=== PATIENT | female | born 1985 | race Two or more races ===

== ENCOUNTER 2020-01-11 09:10 | Inpatient (IN) | payer OTHER ==
[2020-01-11] MEDS ORDERED: BETAMET ACET/BETAMET NA PH 30 MG/5 ML VIAL IM ONE (10:47)
[2020-01-11] MEDS ORDERED: ACETAMINOPHEN 500 MG TABLET (FP) PO PRN (10:51)
[2020-01-11] MEDS ORDERED: DOCUSATE SODIUM 100 MG CAPSULE (FP) PO PRN (10:51)
--- NOTE | 2020-01-11 10:57 | HP ---
Past Medical History - Primary Care Physician PCP:: Chad Russ - Admission Chief Complaint: 36 weeks, oligo, GDM, breech , variable decel. AMA History of Present Illness: 36 weeks gestation with GDM, diet controlled , breech presentation and decreased AF, and variable decelration admitted for prolonged FHM and follow up harry History Source: Patient Limitations to Obtaining History: Language Barrier - Past Medical History ...: 1 ...Para: 0 ...EDC by Sono: 02/12/20 - Past Surgical History Hx Myomectomy: No Hx Transabdominal Cerclage: No - Social History History of Recent Travel: No Home Medications - Allergies Allergies/Adverse Reactions: Allergies Allergy/AdvReac Type Severity Reaction Status Date / Time No Known Allergies Allergy Verified 01/11/20 09:32 - Home Medications Home Medications: Ambulatory Orders Pnv No.95/Ferrous Fum/Folic AC [ Vitamin Tablet] 1 each PO DAILY 01/09/20 Review of Systems - Review of Systems Constitutional: reports: No Symptoms Eyes: reports: No Symptoms HENT: reports: No Symptoms Neck: reports: No Symptoms Cardiovascular: reports: No Symptoms Respiratory: reports: No Symptoms Gastrointestinal: reports: No Symptoms Genitourinary: reports: No Symptoms Breasts: reports: No Symptoms Reported Musculoskeletal: reports: No Symptoms Integumentary: reports: No Symptoms Neurological: reports: No Symptoms Endocrine: reports: No Symptoms Hematology/Lymphatic: reports: No Symptoms Psychiatric: reports: No Symptoms Physical Exam - Maternity Vital Signs: Vital Signs Temperature 98.3 F 01/11/20 09:34 Pulse Rate 72 01/11/20 09:34 Respiratory Rate 20 01/11/20 09:34 Blood Pressure 102/69 01/11/20 09:34 O2 Sat by Pulse Oximetry (%) Constitutional: Yes: Well Nourished Eyes: Yes: WNL HENT: Yes: WNL Neck: Yes: WNL Cardiovascular: Yes: WNL Breast(s): Yes: WNL - Abdominal Exam/OB Fundal Height: 36 Number of Fetuses: Single Presentation: Breech Contractions: No Regularity: Irritability Intensity: Unaware Monitor Mode: External Heart Rate Location: Midline Category: I Accelerations: Non-Uniform Decelerations: Variable - Vaginal Exam/OB Vaginal Bleeding: No Speculum Exam: No Dilatation (cm): closed Effacement (%): 0 Amniotic Membrane Status: Intact Presentation: Girish Breech Station: -3 - Physical Exam Musculoskeletal: Yes: WNL Extremities: Yes: WNL Edema: Yes Edema: LLE: Trace, RLE: Trace Deep Tendon Reflex Grade: Normal +2 Psychiatric: Yes: WNL Hemorrhage Risk Assessment - Risk Factors Medium Risk Factors: Yes: None High Risk Factors: Yes: None Risk Score: 1 Risk Level: Medium Risk Problem List - Problems (1) with 36 completed weeks gestation Code(s): Z3A.36 - 36 WEEKS GESTATION OF (2) GDM (gestational diabetes mellitus) Code(s): O24.419 - GESTATIONAL DIABETES MELLITUS IN , UNSP CONTROL Qualifiers: Gestational diabetes mellitus control: diet-controlled Trimester: third trimester Qualified Code(s): O24.410 - Gestational diabetes mellitus in , diet controlled (3) Oligohydramnios Code(s): O41.00X0 - OLIGOHYDRAMNIOS, UNSP TRIMESTER, NOT APPLICABLE OR UNSP Qualifiers: Fetus number: single or unspecified fetus Trimester: third trimester Qualified Code(s): O41.03X0 - Oligohydramnios, third trimester, not applicable or unspecified (4) Breech presentation of fetus Code(s): O32.1XX0 - MATERNAL CARE FOR BREECH PRESENTATION, UNSP Qualifiers: Fetus number: single or unspecified fetus Qualified Code(s): O32.1XX0 - Maternal care for breech presentation, not applicable or unspecified Assessment/Plan admit prolonged FHM Blood sugar monitoring repeat BPP in am for HARRY celestone for long maturity
[2020-01-11 11:24] LABS: BASO % 0.5 % (0-2.0); EOS % 1.2 % (0-4.5); HEMATOCRIT 29.8 % (32.4-45.2); LYMPH % 20.5 % (8-40); MCH 30.9 pg (25.7-33.7); MCHC 33.7 g/dl (32.0-36.0); MEAN CELL VOLUME 91.9 fl (80-96); MONO % 6.4 % (3.8-10.2); NEUT % 71.4 % (42.8-82.8); PLATELET COUNT 235 K/MM3 (134-434); RBC 3.25 M/mm3 (3.60-5.2); RDW 14.5 % (11.6-15.6); WHITE BLOOD COUNT 8.5 K/mm3 (4.0-10.0)
[2020-01-11 11:29] LABS: INR 0.92 (0.83-1.09); PROTHROMBIN TIME (PATIENT) 10.9 SEC (9.7-13.0)
[2020-01-11 11:32] LABS: ACTIVATED PTT 26.7 SECONDS (25.2-36.5)
[2020-01-11 11:48] LABS: BLOOD UREA NITROGEN 7.2 mg/dL (7-18); CALCIUM 8.8 mg/dL (8.5-10.1); CREATININE 0.4 mg/dL (0.55-1.3); POTASSIUM 4.5 mmol/L (3.5-5.1)
[2020-01-11 11:58] VITALS: BMI 23.8
[2020-01-11] MEDS ORDERED: BETAMET ACET/BETAMET NA PH 30 MG/5 ML VIAL ONE (12:07)
[2020-01-11] MEDS: PRENATAL VITAMINS W/ FOLIC ACID TABLET (FP) PO SCH (12:32)
[2020-01-11 16:10] LABS: BLOOD UREA NITROGEN 7.9 mg/dL (7-18); CREATININE 0.6 mg/dL (0.55-1.3); POTASSIUM 3.7 mmol/L (3.5-5.1)
[2020-01-11] MEDS: INSULIN SLIDING SCALE (NOVOLOG) 1 VIAL SQ SCH (20:50)
[2020-01-11] MEDS ORDERED: INSULIN (LEVEMIR) 100 UNITS/ML UNITS SQ SCH (22:00)
--- NOTE | 2020-01-11 22:02 | PN ---
Progress Note (short form) - Note Progress Note: BGM 191 , will start on NPH 5 u HS, and sliding scale regular insulin Problem List - Problems (1) with 36 completed weeks gestation Code(s): Z3A.36 - 36 WEEKS GESTATION OF (2) GDM (gestational diabetes mellitus) Code(s): O24.419 - GESTATIONAL DIABETES MELLITUS IN , UNSP CONTROL Qualifiers: Gestational diabetes mellitus control: diet-controlled Trimester: third trimester Qualified Code(s): O24.410 - Gestational diabetes mellitus in , diet controlled (3) Oligohydramnios Code(s): O41.00X0 - OLIGOHYDRAMNIOS, UNSP TRIMESTER, NOT APPLICABLE OR UNSP Qualifiers: Fetus number: single or unspecified fetus Trimester: third trimester Qualified Code(s): O41.03X0 - Oligohydramnios, third trimester, not applicable or unspecified (4) Breech presentation of fetus Code(s): O32.1XX0 - MATERNAL CARE FOR BREECH PRESENTATION, UNSP Qualifiers: Fetus number: single or unspecified fetus Qualified Code(s): O32.1XX0 - Maternal care for breech presentation, not applicable or unspecified
[2020-01-12] MEDS ORDERED: ELECTROLYTE-148 SOLN 1,000 ML IV ONE (01:30)
[2020-01-12] MEDS ORDERED: BETAMET ACET/BETAMET NA PH 30 MG/5 ML VIAL IM ONE (08:45)
[2020-01-12] MEDS: INSULIN SLIDING SCALE (NOVOLOG) 1 VIAL SQ SCH ×2 (10:50→10:51)
[2020-01-12] MEDS: PRENATAL VITAMINS W/ FOLIC ACID TABLET (FP) PO SCH (10:52)
[2020-01-12] MEDS ORDERED: ELECTROLYTE-148 SOLN 500 ML IV ONE (11:29)
[2020-01-12] MEDS ORDERED: CITRIC ACID/SODIUM CITRATE 30 ML UNIT-DOSE CUP PO ONE (11:29)
[2020-01-12] MEDS ORDERED: ELECTROLYTE-148 SOLN 1,000 ML IV SCH (11:30)
[2020-01-12] MEDS ORDERED: OXYTOCIN 20 UNITS in 0.9% NS 20 UNIT/1,000 ML INFUS.BAG IV ONE (11:46)
--- NOTE | 2020-01-12 12:34 | PN ---
Progress Note (short form) - Note Progress Note: Pt back from Sonogram around 10AM BPP 09/07, off for fluid. HARRY 2.6 now; down from 7.1 on 01/08 and 6.4 on 01/10 Delivery recommended by MFM given change in fluid. FHT Cat I upon return from L&D Discussed findings with patient and her in [place] Delivery recommended, via given Breech presentation Consents signed after risks reviewed in [place]. All questions answered. Theresa Mars MD
[2020-01-12] MEDS ORDERED: morphine SULFATE/PF 0.5 MG/ML (2cc Syringe - QUVA) ONE (13:27)
[2020-01-12] MEDS ORDERED: oxyCODONE HCL 5 MG TABLET PO PRN (14:21)
[2020-01-12] MEDS ORDERED: IBUPROFEN 800 MG/8 ML IJ IVPB PRN (14:21)
[2020-01-12] MEDS ORDERED: METHYLERGONOVINE MALEATE 0.2 MG/1 ML AMP IM PRN (14:21)
--- NOTE | 2020-01-12 14:21 | OP ---
Operative Note - Note: Operative Date: 01/12/20 Pre-Operative Diagnosis: 35 week , GDMA2- non compliant, Oligohydramnios, Breech Operation: Primary Low Transverse Findings: VFI, Complete Breech, no nuchal, no fluid, Apgrs 12/09. Normal tubes and ovaries bilaterally Post-Operative Diagnosis: Same as Pre-op Surgeon: Diana Mars Mining Engineer: Vamshi Canales Anesthesia: Spinal Estimated Blood Loss (mls): 500 Drains, Volume Out (mls): 100 (clear urine) Operative Report Dictated: Yes
[2020-01-12] MEDS ORDERED: OXYTOCIN 20 UNITS in 0.9% NS 20 UNIT/1,000 ML INFUS.BAG IV SCH (14:30)
[2020-01-12] MEDS ORDERED: ONDANSETRON 4 MG/2 ML VIAL ONE (15:06)
[2020-01-12] MEDS ORDERED: ONDANSETRON 4 MG/2 ML VIAL IVPUSH PRN (15:17)
[2020-01-12] MEDS ORDERED: morphine SULFATE/PF 0.5 MG/ML (2cc Syringe - QUVA) SPIN ONE (15:17)
[2020-01-12] MEDS ORDERED: DEXAMETHASONE SOD PHOSPHATE 20 MG/5 ML VIAL IVPB ONE (15:18)
--- NOTE | 2020-01-12 15:18 | OP ---
DATE OF OPERATION: 01/12/2020 PREOPERATIVE DIAGNOSIS: A 35-week , gestational diabetes A2 noncompliant, oligohydramnios, breech presentation. POSTOPERATIVE DIAGNOSIS: A 35-week , gestational diabetes A2 noncompliant, oligohydramnios, breech presentation. PROCEDURE: Primary low transverse section. ANESTHESIA: Spinal. SURGEON: Diana Mars MD BOBBIN CLEANER HAND: RAMYA Mills ESTIMATED BLOOD LOSS: 500 IV FLUIDS: Per Anesthesia record. URINE OUTPUT: 100 mL of clear urine at the end of the procedure. FINDINGS: A viable female complete breech, no nuchal, no fluid, 's 9, 9. Normal tubes and ovaries bilaterally. COMPLICATIONS: None. CONDITION: Stable to recovery room. NATURE OF THE PROCEDURE: After the appropriate consents were signed, patient was taken to the operating room. Spinal anesthesia was administered. She was placed in the supine position. The abdomen was prepped and draped in a normal sterile fashion. A sterile Babb catheter was inserted in the operating room. A timeout was performed confirming correct patient and procedure. Anesthesia was confirmed. A Pfannenstiel incision was made, carried through to the underlying layers until the fascia was nicked in the midline. The fascia was then extended laterally with the Bustillo scissors. The inferior aspect of the fascia was grasped with a David clamp, tented upwards and the rectus muscles dissected off bluntly and with the Bustillo scissors. Attention was then paid to the superior aspect which was taken down in a similar fashion. The rectus muscles were in the midline. The peritoneum was entered sharply. Bladder blade was inserted. The bladder flap was created with the Metzenbaum scissors and digitally. The bladder blade was readjusted. The uterus was incised in a low transverse fashion. Clear amniotic fluid was not appreciated. No fluid was appreciated. The was noted to be in complete breech presentation. The feet were grasped, pulled through the hysterotomy. Then remaining body, shoulders, 's head were delivered in a typical breech fashion. Cord was clamped and cut. The infant handed off to the waiting NICU staff. Placenta was then removed manually. Uterus was cleared of all clot and debris. The uterus was exteriorized. The hysterotomy was closed in 2 layers with a 0 Vicryl. The muscles were then closed after the uterus was reintroduced into the abdominal cavity and the gutters were cleared. The muscles were reapproximated with a 2-0 chromic. The fascia was closed with a 0 Vicryl. The skin was closed with a 3-0 Biosyn. Bandages were placed. Sponge, lap, needle counts were correct x3. The patient did receive Ancef at the start of the procedure. She was taken from the operating room to the recovery area in stable condition. MD NELLA GOMEZ/[id number]
[2020-01-12 15:29] LABS: CORD BASE EXCESS -3.2 mmol/L (0-2); CORD HCO3 22.3 mmHg (20-29); CORD PCO2 41.6 mmHg (30-78); CORD pH 7.347 (7.14-7.44)
[2020-01-12 15:33] LABS: CORD PCO2 58.1 mmHg (30-78); CORD pH 7.251 (7.14-7.44)
[2020-01-12] MEDS ORDERED: ACETAMINOPHEN INJECTION 100 ML IVPB ONE (15:55)
[2020-01-12] MEDS ORDERED: ACETAMINOPHEN 1000 MG/100 ML VIAL (NON FORMULARY) IVPB PRN (16:30)
[2020-01-12] MEDS: FERROUS SO4 325 MG TABLET (FP) PO SCH (23:30)
--- NOTE | 2020-01-13 07:29 | PN ---
Post Progress Note - Subjective Subjective: Babb removed, not yet ambulating, no N/V, lochia decreased, baby in center Post Day: 1 Type of Delivery: Primary C/S Vital Signs: Vital Signs Temperature 98.3 F 01/13/20 06:00 Pulse Rate 67 01/13/20 06:00 Respiratory Rate 20 01/13/20 06:00 Blood Pressure 90/44 L 01/13/20 06:00 O2 Sat by Pulse Oximetry (%) 93 L 01/13/20 06:00 Breast Exam: Yes: Other Uterus: Yes: Fundus Firm Incision: Yes: Dressing dry and intact Abdomen/GI: Yes: Abdomen soft Lochia, amount: Moderate Extremities: Yes: Calves non-tender Perineum: Yes: Intact Activity: Ambulating - Labs Labs: CBC WBC 8.5 K/mm3 (4.0-10.0) 01/11/20 11:10 RBC 3.25 M/mm3 (3.60-5.2) L 01/11/20 11:10 Hgb 10.0 GM/dL (10.7-15.3) L 01/11/20 11:10 Hct 29.8 % (32.4-45.2) L 01/11/20 11:10 MCV 91.9 fl (80-96) 01/11/20 11:10 MCH 30.9 pg (25.7-33.7) 01/11/20 11:10 MCHC 33.7 g/dl (32.0-36.0) 01/11/20 11:10 RDW 14.5 % (11.6-15.6) 01/11/20 11:10 Plt Count 235 K/MM3 (134-434) 01/11/20 11:10 MPV 10.0 fl (7.5-11.1) 01/11/20 11:10 Absolute Neuts (auto) 6.1 K/mm3 (1.5-8.0) 01/11/20 11:10 Neutrophils % 71.4 % (42.8-82.8) 01/11/20 11:10 Lymphocytes % 20.5 % (8-40) 01/11/20 11:10 Monocytes % 6.4 % (3.8-10.2) 01/11/20 11:10 Eosinophils % 1.2 % (0-4.5) 01/11/20 11:10 Basophils % 0.5 % (0-2.0) 01/11/20 11:10 Nucleated RBC % 0 % (0-0) 01/11/20 11:10 Assessment/Plan 35 y/o on POD # 1 in stable condition and infant in center -AM CBC -COntinue inpatient care -Encourage ambulation
[2020-01-13 08:15] LABS: BASO % 0.1 % (0-2.0); HEMATOCRIT 24.3 % (32.4-45.2); HEMOGLOBIN 8.3 GM/dL (10.7-15.3); LYMPH % 13.7 % (8-40); MCH 31.2 pg (25.7-33.7); MCHC 34.1 g/dl (32.0-36.0); MEAN CELL VOLUME 91.5 fl (80-96); MEAN PLT VOLUME 10.1 fl (7.5-11.1); MONO % 6.7 % (3.8-10.2); NEUT % 79.5 % (42.8-82.8); PLATELET COUNT 200 K/MM3 (134-434); RBC 2.66 M/mm3 (3.60-5.2); RDW 14.6 % (11.6-15.6); WHITE BLOOD COUNT 14.6 K/mm3 (4.0-10.0)
--- NOTE | 2020-01-13 08:22 | PN ---
Progress Note (short form) - Note Progress Note: Post Anesthesia post op check Patient seen at bedside, s/p c section under spinal anesthesia with duramorph for post op pain control. Pt doing well, pain controlled, no nausea or vomiting, itching controlled, no headache, no anesthetic complications, dept of anesthesi ology will sign off care at this time
[2020-01-13] MEDS: FERROUS SO4 325 MG TABLET (FP) PO SCH ×2 (10:20→21:14)
[2020-01-13] MEDS: PRENATAL VITAMINS W/ FOLIC ACID TABLET (FP) PO SCH (10:20)
[2020-01-13] MEDS ORDERED: BISACODYL 10 MG SUPP.RECT RC PRN (14:21)
[2020-01-13] MEDS: IBUPROFEN 600 MG TABLET (FP) PO PRN (20:48)
[2020-01-13] MEDS: SIMETHICONE 80 MG TAB.CHEW (FP) PO PRN (20:48)
--- NOTE | 2020-01-14 07:45 | PN ---
Post Progress Note - Subjective Subjective: c/o pain 7-8/10 voiding without difficulty no c/o dizziness Post Day: 2 Type of Delivery: Primary C/S Vital Signs: Vital Signs Temperature 98.6 F 01/13/20 22:00 Pulse Rate 65 01/13/20 22:00 Respiratory Rate 18 01/13/20 22:00 Blood Pressure 94/52 L 01/13/20 22:00 O2 Sat by Pulse Oximetry (%) 93 L 01/13/20 06:00 Breast Exam: Yes: Soft, Engorged (plans to BF ) Uterus: Yes: Fundus Firm, Fundus below umbilicus (tender) Incision: Yes: Sutures intact. No: Redness, Oozing Abdomen/GI: Yes: Abdomen soft, Tender, Passing flatus (bm not done ), Tolerating PO (diet). No: Abdominal Distention Lochia: Yes: Rubra Lochia, amount: Moderate Extremities: Yes: Calves non-tender Perineum: Yes: Intact Activity: Ambulating - Labs Labs: CBC WBC 14.6 K/mm3 (4.0-10.0) H 01/13/20 07:53 RBC 2.66 M/mm3 (3.60-5.2) L 01/13/20 07:53 Hgb 8.3 GM/dL (10.7-15.3) L 01/13/20 07:53 Hct 24.3 % (32.4-45.2) L D 01/13/20 07:53 MCV 91.5 fl (80-96) 01/13/20 07:53 MCH 31.2 pg (25.7-33.7) 01/13/20 07:53 MCHC 34.1 g/dl (32.0-36.0) 01/13/20 07:53 RDW 14.6 % (11.6-15.6) 01/13/20 07:53 Plt Count 200 K/MM3 (134-434) 01/13/20 07:53 MPV 10.1 fl (7.5-11.1) 01/13/20 07:53 Absolute Neuts (auto) 11.6 K/mm3 (1.5-8.0) H 01/13/20 07:53 Neutrophils % 79.5 % (42.8-82.8) 01/13/20 07:53 Lymphocytes % 13.7 % (8-40) D 01/13/20 07:53 Monocytes % 6.7 % (3.8-10.2) 01/13/20 07:53 Eosinophils % 0.0 % (0-4.5) D 01/13/20 07:53 Basophils % 0.1 % (0-2.0) 01/13/20 07:53 Nucleated RBC % 0 % (0-0) 01/13/20 07:53 Problem List - Problems (1) Status post section routine follow-up Code(s): Z39.2 - ENCOUNTER FOR ROUTINE FOLLOW-UP; Z98.891 - HISTORY OF UTERINE SCAR FROM PREVIOUS SURGERY Assessment/Plan s/p primary c/section day#2 stable anemia not symptomatic encourage to breast feed amulatation, po fluids, deep breathing encouraged may discharge tomorrow.
[2020-01-14] MEDS: PRENATAL VITAMINS W/ FOLIC ACID TABLET (FP) PO SCH (09:38)
[2020-01-14] MEDS: FERROUS SO4 325 MG TABLET (FP) PO SCH ×2 (09:38→22:22)
[2020-01-14] MEDS: IBUPROFEN 600 MG TABLET (FP) PO PRN (17:22)
[2020-01-14] MEDS: SIMETHICONE 80 MG TAB.CHEW (FP) PO PRN (20:09)
[2020-01-14] MEDS ORDERED: ACETAMINOPHEN 500 MG TABLET (FP) PO PRN (23:10)
[2020-01-15] MEDS: IBUPROFEN 600 MG TABLET (FP) PO PRN ×2 (05:23→13:50)
[2020-01-15] MEDS: SIMETHICONE 80 MG TAB.CHEW (FP) PO PRN (05:24)
--- NOTE | 2020-01-15 07:46 | PN ---
Post Progress Note - Subjective Subjective: Pain controlled. Breastpumping. Pain controlled. No fevers/chills. Post Day: 3 Type of Delivery: Primary C/S Vital Signs: Vital Signs Temperature 98.1 F 01/14/20 22:00 Pulse Rate 69 01/14/20 22:00 Respiratory Rate 20 01/14/20 22:00 Blood Pressure 96/57 L 01/14/20 22:00 O2 Sat by Pulse Oximetry (%) 98 01/14/20 09:15 Incision: No: Dressing dry and intact, [place] intact, Sutures intact, Redness, Oozing, Other Abdomen/GI: No: Abdomen soft, Abdominal Distention, Tender, Passing flatus, Tolerating PO, Other Extremities: No: Calves non-tender, Calf tenderness, Edema Perineum: No: Intact, Episiotomy, Laceration Activity: Ambulating - Labs Labs: CBC WBC 14.6 K/mm3 (4.0-10.0) H 01/13/20 07:53 RBC 2.66 M/mm3 (3.60-5.2) L 01/13/20 07:53 Hgb 8.3 GM/dL (10.7-15.3) L 01/13/20 07:53 Hct 24.3 % (32.4-45.2) L D 01/13/20 07:53 MCV 91.5 fl (80-96) 01/13/20 07:53 MCH 31.2 pg (25.7-33.7) 01/13/20 07:53 MCHC 34.1 g/dl (32.0-36.0) 01/13/20 07:53 RDW 14.6 % (11.6-15.6) 01/13/20 07:53 Plt Count 200 K/MM3 (134-434) 01/13/20 07:53 MPV 10.1 fl (7.5-11.1) 01/13/20 07:53 Absolute Neuts (auto) 11.6 K/mm3 (1.5-8.0) H 01/13/20 07:53 Neutrophils % 79.5 % (42.8-82.8) 01/13/20 07:53 Lymphocytes % 13.7 % (8-40) D 01/13/20 07:53 Monocytes % 6.7 % (3.8-10.2) 01/13/20 07:53 Eosinophils % 0.0 % (0-4.5) D 01/13/20 07:53 Basophils % 0.1 % (0-2.0) 01/13/20 07:53 Nucleated RBC % 0 % (0-0) 01/13/20 07:53 Assessment/Plan 35yo s/p PLTCS, POD#3 Routine PP care PO pain control OOB, ambulate Labs reviewed D/C to home POD#4 given baby in NICU Theresa Mars MD
[2020-01-15 08:45] LABS: BASO % 0.6 % (0-2.0); EOS % 0.9 % (0-4.5); HEMATOCRIT 30.5 % (32.4-45.2); HEMOGLOBIN 10.1 GM/dL (10.7-15.3); LYMPH % 26.9 % (8-40); MCH 30.3 pg (25.7-33.7); MEAN CELL VOLUME 91.8 fl (80-96); MEAN PLT VOLUME 9.6 fl (7.5-11.1); MONO % 6.8 % (3.8-10.2); NEUT % 64.8 % (42.8-82.8); PLATELET COUNT 281 K/MM3 (134-434); RBC 3.32 M/mm3 (3.60-5.2); RDW 14.9 % (11.6-15.6); WHITE BLOOD COUNT 13.4 K/mm3 (4.0-10.0)
[2020-01-15] MEDS: PRENATAL VITAMINS W/ FOLIC ACID TABLET (FP) PO SCH (10:11)
[2020-01-15] MEDS: FERROUS SO4 325 MG TABLET (FP) PO SCH ×2 (10:11→21:37)
--- NOTE | 2020-01-16 07:03 | DS ---
Physical Exam-[employer] Vital Signs: Vital Signs Temperature 98.9 F 01/15/20 22:00 Pulse Rate 71 01/15/20 22:00 Respiratory Rate 18 01/15/20 22:00 Blood Pressure 107/67 01/15/20 22:00 O2 Sat by Pulse Oximetry (%) 100 01/15/20 10:00 Constitutional: Yes: Well Nourished, No Distress, Calm Eyes: Yes: WNL, Conjunctiva Clear, EOM Intact HENT: Yes: WNL, Atraumatic, Normocephalic Neck: Yes: WNL, Supple, Trachea Midline Cardiovascular: Yes: WNL, Regular Rate and Rhythm Respiratory: Yes: WNL, Regular, CTA Bilaterally Gastrointestinal: Yes: WNL ...Rectal Exam: Yes: WNL Renal/: Yes: WNL ....Post : Yes: Uterus firm, Uterus non-tender, Slight lochia rubra Breast(s): Yes: WNL Musculoskeletal: Yes: WNL Extremities: Yes: WNL Edema: No Integumentary: Yes: WNL Wound/Incision: Yes: Clean/Dry, Well Approximated, Sutures Intact Neurological: Yes: WNL, Alert, Oriented ...Motor Strength: WNL Psychiatric: Yes: WNL, Alert, Oriented Labs: CBC, BMP 01/15/20 08:20 01/11/20 15:37 Delivery - Delivery Section: Primary Type of Anesthesia: Spinal Episiotomy/Laceration: None EBL (cc): 500 Delivery, Single - Stages of Labor Date of Delivery: 01/12/20 Time of Delivery: 13:50 Time Placenta Delivered: 13:51 Placenta: Yes: Expressed - Condition of Director Of Procurement/Crusher Supervisor Present: Yes Name: Marielos Zamora Gender: Female Weight: 5 lb 5 oz Total Hours ROM (Hrs/Mins): 0/01 - 1 Minute Total Score: 9 5 Minutes Total Score: 9 - [place] Feeding Plan Initial Plan: Exclusive throughout hospitalization Discharge Summary Reason For Visit: R/O OLIGOHYDRAMNIOS Current Active Problems Breech presentation of fetus (Acute) GDM (gestational diabetes mellitus) (Acute) Oligohydramnios (Acute) with 36 completed weeks gestation (Acute) Status post section routine follow-up (Acute) Procedures: Principal: primary LST c/s Hospital Course: no complication Health Concerns: GDM Plan of Treatment: cont.BGM , follow up [facility] 1 week Condition: Stable - Instructions Diet, Activity, Other Instructions: Regular diet Follow up in one week with Dr. Mars for an incision check Referrals: Diaan Mars MD [Staff Physician] - Disposition: HOME - Home Medications Comprehensive Discharge Medication List: Ambulatory Orders Pnv No.95/Ferrous Fum/Folic AC [ Vitamin Tablet] 1 each PO DAILY 01/09/20 Breast Pump 1 each MC 5XD 30 Days #1 each 01/12/20 Ibuprofen 600 mg PO Q6H PRN #30 tablet 01/12/20 Oxycodone HCl/Acetaminophen [Percocet 5-325 mg Tablet -] 1 - 2 tab PO Q6H PRN #20 tab MDD 4 01/12/20
[2020-01-16 09:21] VITALS: BP 105/69; PULSE 64; TEMP 98.3
[2020-01-16] MEDS: PRENATAL VITAMINS W/ FOLIC ACID TABLET (FP) PO SCH (10:27)
[2020-01-16] MEDS: FERROUS SO4 325 MG TABLET (FP) PO SCH (10:27)
[2020-01-16] MEDS: IBUPROFEN 600 MG TABLET (FP) PO PRN (10:59)
--- NOTE | 2020-01-19 15:49 | PATH ---
Surgical Pathology Report Patient Name: RICHAR JAVIER Med. Rec. #: [id number] /Age/Gender: 1985 (Age: 35) / F Account: [id number] Location: [facility] OBS/CERTIFIED PROFESSIONAL MIDWIFE Taken: 01/12/2020 Received: 01/13/2020 Reported: 01/19/2020 Physicians: Diana Mars Specimen(s) Received PLACENTA Clinical History Final Diagnosis PLACENTA: THIRD TRIMESTER PLACENTA. TRIVASCULAR CORD. MEMBRANES WITH NO DIAGNOSTIC ABNORMALITIES. Electronically Signed Jon Lopez M.D. Gross Description The specimen is received fresh labeled placenta and is a 370 gram, 14.5 x 12.0 x 3.2 cm. placenta with attached membranes and umbilical cord. The attached membranes are daigle, translucent with focal opacities and insert marginally. The umbilical cord measures 17 cm. in length and averages 1.2 cm. in diameter. The cord inserts eccentrically, 4.5 cm. to the nearest margin. No true knots or strictures are identified. Cut surface of the umbilical cord reveals 3 vessels. The surface is corley-blue with minimal fibrin deposition and appropriate caliber vessels. The maternal surface is red-brown with focal defects. Sectioning reveals red-brown, spongy parenchyma. No lesions are identified. Hospital Fellow sections are submitted in three cassettes as follows: 1- membrane rolls and umbilical cord; 2-3- full thickness sections of placenta. 01/14/2020 saudi01/14/2020
== END 2020-01-16 15:15 | disposition home or self-care (01) | DRG 540 ==
LOC: JDEL 09:10 → JLDR 10:30 → OBSVTOIN 10:42 → J3W 01-12 16:50
PROVIDERS: ADMIT Obstetrics & Gynecology; ATTEND Obstetrics & Gynecology
PROC: 10D00Z1 Extraction of Products of Conception, Low, Open Approach (ICD-10-PCS; principal; 2020-01-12)
DX: O41.03X0 Oligohydramnios, third trimester, not applicable or unspecified (principal); O24.410 Gestational diabetes mellitus in pregnancy, diet controlled; O32.1XX0 Maternal care for breech presentation, not applicable or unspecified; O90.81 Anemia of the puerperium; D64.9 Anemia, unspecified; Z37.0 Single live birth; Z3A.36 36 weeks gestation of pregnancy
CPT/HCPCS: 36415; 36600; 76819-TC; 80048; 82803; 82962; 85025; 85610; 85730; 86780; 86850; 86900; 86901; 87389; 88307-TC; 96372; C9803; G0378; J0131; U0003

== ENCOUNTER 2023-06-20 09:27 | Inpatient (IN) | payer OTHER ==
[2023-06-20 11:25] VITALS: BMI 24.3
[2023-06-20] MEDS: ELECTROLYTE-148 SOLN 1,000 ML IV SCH (11:26)
[2023-06-20 12:52] LABS: BASO % 0.5 % (0-2.0); EOS % 0.4 % (0-4.5); HEMATOCRIT 29.1 % (32.4-45.2); HEMOGLOBIN 9.4 GM/dL (10.7-15.3); LYMPH % 17.9 % (8-40); MCH 27.8 pg (25.7-33.7); MCHC 32.5 g/dl (32.0-36.0); MEAN CELL VOLUME 85.7 fl (80-96); MEAN PLT VOLUME 9.3 fl (7.5-11.1); MONO % 5.3 % (3.8-10.2); NEUT % 75.9 % (42.8-82.8); PLATELET COUNT 257 10^3/uL (134-434); RBC 3.39 M/mm3 (3.60-5.2); WHITE BLOOD COUNT 11.2 K/mm3 (4.0-10.0)
[2023-06-20] MEDS ORDERED: FENTANYL/BUPIVACAINE/NS/PF - PCEA - 50 ML DISP.SYRIN EP ONE (12:55)
[2023-06-20 12:59] LABS: INR 0.92 (0.83-1.09); PROTHROMBIN TIME (PATIENT) 10.7 SEC (9.7-13.0)
[2023-06-20 13:02] LABS: ACTIVATED PTT 24.5 SECONDS (25.2-36.5)
[2023-06-20 13:21] LABS: POTASSIUM 3.8 mmol/L (3.5-5.1)
[2023-06-20] MEDS: FENTANYL/BUPIVACAINE/NS/PF - PCEA - 50 ML DISP.SYRIN EP SCH (13:25)
[2023-06-20 13:27] LABS: BLOOD UREA NITROGEN 8.2 mg/dL (7-18); CALCIUM 8.6 mg/dL (8.5-10.1)
[2023-06-20 13:30] LABS: CREATININE 0.5 mg/dL (0.55-1.3)
[2023-06-20] MEDS ORDERED: NALOXONE HCL 0.4 MG/ML VIAL IVPUSH PRN (13:56)
[2023-06-20] MEDS: BUTORPHANOL TARTRATE 2 MG/ML VIAL IVPB ONE (14:13)
[2023-06-20] MEDS: PROMETHAZINE HCL 25 MG/1 ML VIAL IVPB ONE (14:13)
[2023-06-20] MEDS ORDERED: LIGASURE IMPACT TP ONE (16:14)
[2023-06-20] MEDS ORDERED: LIDO 2%/EPI 1:200000 PRESRVFRE (20 ML SDVIAL) ONE (16:42)
[2023-06-20] MEDS ORDERED: PHENYLEPHRINE HCL 10 MG/1 ML SINGLE DOSE VIAL ONE (16:44)
[2023-06-20] MEDS ORDERED: FENTANYL CITRATE/PF 50 MCG/ML VIAL ONE ×2 (16:44→17:32)
[2023-06-20] MEDS ORDERED: morphine SULFATE/PF 1 MG/2 ML (2cc Syringe - QUVA) ONE ×2 (16:44→17:29)
[2023-06-20] MEDS ORDERED: ceFAZolin SODIUM 1 GM VIAL ONE (16:53)
[2023-06-20] MEDS ORDERED: ONDANSETRON 4 MG/2 ML VIAL ONE (16:58)
[2023-06-20] MEDS ORDERED: OXYTOCIN 10 UNITS/ML VIAL ONE (17:12)
[2023-06-20] MEDS ORDERED: ACETAMINOPHEN 325 MG TABLET (FP) PO PRN (17:42)
[2023-06-20] MEDS ORDERED: OXYTOCIN 20 UNITS in 0.9% NS 20 UNIT/1,000 ML INFUS.BAG IV ONE (17:54)
[2023-06-20] MEDS: OXYTOCIN 20 UNITS in 0.9% NS 20 UNIT/1,000 ML INFUS.BAG IV SCH (17:55)
[2023-06-20] MEDS ORDERED: ONDANSETRON 4 MG/2 ML VIAL IVPUSH PRN (20:28)
[2023-06-20] MEDS: PROCHLORPERAZINE INJECTION 10 MG/2 ML VIAL IVPB PRN (20:49)
[2023-06-21] MEDS: CEFAZOLIN SODIUM 2 GM in DEXTROSE 5%-WATER 100 ML IVPB ONE (00:06)
[2023-06-21 00:50] VITALS: RESP 18
[2023-06-21] MEDS ORDERED: oxyCODONE HCL 5 MG TABLET PO PRN (05:42)
[2023-06-21 08:55] LABS: BASO % 0.4 % (0-2.0); EOS % 0.3 % (0-4.5); HEMOGLOBIN 7.3 GM/dL (10.7-15.3); LYMPH % 18.5 % (8-40); MCH 28.6 pg (25.7-33.7); MCHC 33.3 g/dl (32.0-36.0); MEAN CELL VOLUME 85.9 fl (80-96); MEAN PLT VOLUME 9.3 fl (7.5-11.1); NEUT % 75.8 % (42.8-82.8); PLATELET COUNT 217 10^3/uL (134-434); RBC 2.56 M/mm3 (3.60-5.2); RDW 15.2 % (11.6-15.6); WHITE BLOOD COUNT 10.6 K/mm3 (4.0-10.0)
[2023-06-21] MEDS: IBUPROFEN 800 MG/8 ML IJ IVPB PRN (10:07)
[2023-06-21] MEDS: FERROUS SO4 325 MG TABLET (FP) PO SCH (10:07)
[2023-06-21] MEDS: IBUPROFEN 600 MG TABLET (FP) PO PRN (19:49)
[2023-06-22] MEDS: BISACODYL 10 MG SUPP.RECT RC PRN (13:47)
[2023-06-22] MEDS: SIMETHICONE 80 MG TAB.CHEW (FP) PO PRN (23:07)
[2023-06-23 09:12] LABS: BASO % 0.4 % (0-2.0); EOS % 1.8 % (0-4.5); HEMATOCRIT 24.6 % (32.4-45.2); LYMPH % 24.9 % (8-40); MCH 28.2 pg (25.7-33.7); MCHC 32.5 g/dl (32.0-36.0); MEAN CELL VOLUME 86.7 fl (80-96); MEAN PLT VOLUME 8.9 fl (7.5-11.1); NEUT % 65.9 % (42.8-82.8); PLATELET COUNT 286 10^3/uL (134-434); RBC 2.84 M/mm3 (3.60-5.2); RDW 15.4 % (11.6-15.6); WHITE BLOOD COUNT 9.8 K/mm3 (4.0-10.0)
[2023-06-23 11:28] VITALS: BP 102/68; PULSE 76; TEMP 98.1
== END 2023-06-23 13:05 | disposition home or self-care (01) | DRG 540 ==
LOC: JDEL 09:27 → JLDR 10:15 → J3W 19:58
PROVIDERS: ADMIT Student in an Organized Health Care Education/Training Program; ATTEND Student in an Organized Health Care Education/Training Program
PROC: 10D00Z1 Extraction of Products of Conception, Low, Open Approach (ICD-10-PCS; principal; 2023-06-20)
PROC: 0UB70ZZ Excision of Bilateral Fallopian Tubes, Open Approach (ICD-10-PCS; 2023-06-20)
DX: O34.211 Maternal care for low transverse scar from previous cesarean delivery (principal); N85.8 Other specified noninflammatory disorders of uterus; Z30.2 Encounter for sterilization; O99.02 Anemia complicating childbirth; Z3A.38 38 weeks gestation of pregnancy; Z37.0 Single live birth
CPT/HCPCS: 36415; 80048; 85025; 85610; 85730; 86780; 86850; 86900; 86901; 88305-TC; 88307-TC